=== PATIENT | male | born 1960 | race Two or more races ===

== ENCOUNTER 2016-12-03 00:22 | Emergency (ER) | payer BC ==
[2016-12-03 00:57] VITALS: TEMP 98.3; BMI 29.0
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
[2016-12-03] MEDS ORDERED: SODIUM CHLORIDE 1,000 ML IV STA (01:17)
[2016-12-03 01:58] LABS: MCH 30.8 pg (25.7-33.7); MCHC 34.5 g/dl (32.0-35.9); MEAN CELL VOLUME 89.2 fl (80-96); MEAN PLT VOLUME 7.3 fl (7.5-11.1); NEUTROPHILS 53.3 % (42.8-82.8); PLATELET COUNT 337 K/MM3 (134-434); RDW 18.4 % (11.9-15.9)
[2016-12-03 02:10] LABS: INR 1.2 (0.82-1.09); PROTHROMBIN TIME (PATIENT) 13.2 SEC (9.98-11.88)
[2016-12-03 02:23] LABS: ALBUMIN 4.1 g/dl (3.4-5.0); ALK PHOS 27 U/L (45-117); ANION GAP 11 (8-16); BILIRUBIN,TOTAL 0.1 mg/dL (0.2-1.0); CALCIUM 8.5 mg/dL (8.5-10.1); CO2 26 mmol/L (21-32); CREATININE 0.8 mg/dL (0.7-1.3); GLUCOSE,RANDOM 133 mg/dL (74-106); SGOT/AST 34 U/L (15-37); SGPT/ALT 36 U/L (12-78); TOT PROT 7.7 g/dl (6.4-8.2)
[2016-12-03 02:24] LABS: URINE MARIJUANA THC NEGATIVE ng/ml (CUTOFF=50)
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
[2016-12-03 09:25] VITALS: BP 180/108; PULSE 82
--- NOTE | 2016-12-03 10:16 | EKG ---
Test Reason : Blood Pressure : / mmHG Vent. Rate : 092 BPM Atrial Rate : 092 BPM P-R Int : 256 ms QRS Dur : 150 ms QT Int : 398 ms P-R-T Axes : 075 082 028 degrees QTc Int : 492 ms SINUS RHYTHM WITH 1ST DEGREE A-V BLOCK RIGHT BUNDLE BRANCH BLOCK ABNORMAL ECG WHEN COMPARED WITH ECG OF 09-OCT-2013 14:56, NO SIGNIFICANT CHANGE WAS FOUND REPEAT EKG IF CLINICALLY INDICATED Confirmed by DAMIÁN SCHWAB MD ([id number]) on 12/03/2016 10:15:47 AM Referred By: Confirmed By:DAMIÁN SCHWAB MD
== END 2016-12-03 09:20 | disposition home or self-care (01) ==
LOC: JER 00:22
PROC: 3E0337Z Introduction of Electrolytic and Water Balance Substance into Peripheral Vein, Percutaneous Approach (ICD-10-PCS; principal; 2016-12-03)
DX: F10.920 Alcohol use, unspecified with intoxication, uncomplicated (principal); E11.9 Type 2 diabetes mellitus without complications; F17.210 Nicotine dependence, cigarettes, uncomplicated
CPT/HCPCS: 36415; 80053; 80307; 85025; 85610; 93005; 93010; 99283-25